=== PATIENT | female | born 1965 | race Caucasian/White ===

== ENCOUNTER 2022-03-24 13:40 | Outpatient (REF) | payer MEDICARE, MEDICAID, SELFPAY ==
--- NOTE | ~2022-03-24 | MM_ITS ---
EXAMINATION: BONE DENSITOMETRY CLINICAL INDICATION: Encounter for screening for osteoporosis. COMPARISON: Previous BD dated 03/21/2020 and baseline BD dated 07/26/2000. TECHNIQUE: Using a [employer] DXA System (software version: 13.1) manufactured by [employer], dual-energy x-ray absorptiometry was performed of the lumbar spine and left hip. The images are of good technical quality. Summary results are attached. FINDINGS: AP SPINE L1-L4: Current: BMD 0.829 g/cm2, Z-score -1.3, T-score -2.9, osteoporosis, 2.6% increase from previous, 3.4% increase from baseline (<5% change is not significant). Prior: BMD 0.808 g/cm2. Baseline: BMD 0.802 g/cm2. LEFT FEMUR, NECK: Current: BMD 0.782 g/cm2, Z-score -0.3, T-score -1.8, osteopenia. Prior: BMD 0.682 g/cm2. Baseline: BMD 0.817 g/cm2. LEFT FEMUR, TOTAL: Current: BMD 0.767 g/cm2, Z-score -0.6, T-score -1.9, osteopenia, 5.4% increase from previous, 4.8% decrease from baseline (<5% change is not significant). Prior: BMD 0.728 g/cm2. Baseline: BMD 0.806 g/cm2. IDENTIFIED RISK FACTORS: Osteoporosis, low body weight. Early menopause, secondary osteoporosis, anticonvulsant, hysterectomy, bilateral oophorectomy. HISTORY OF FRACTURE: None listed. MEDICATIONS: Calcium supplements or multivitamin, vitamin D. Prolia. MM/XR DEXA axial skeleton IMPRESSION: 1. DIAGNOSIS: Osteoporosis based on the lowest T-score value of -2.9 in the lumbar spine applying World Health Organization criteria. 2. 10-YEAR FRACTURE RISK PREDICTION, FRAX: According to the guidelines, FRAX calculation should only be performed on patients in the osteopenia bone density category. Therefore, FRAX was not performed on this patient. 3. Treatment Recommendations: NOF guidelines recommend consideration for treatment in postmenopausal women and men age 50 and older presenting with the following: -A hip or vertebral (clinical or morphometric) fracture. -T-score less than or equal to -2.5 at the femoral neck or spine after appropriate evaluation to exclude secondary causes. -Low bone mass at the hip or spine and a 10-year fracture probability by FRAX of greater than or equal to 3% for hip fracture or greater than or equal to 20% for major osteoporotic fracture based on the [place] adapted WHO algorithm. 4. Other Recommendations: All treatment decisions require clinical judgment and consideration of individual patient factors, including patient preferences, comorbidities, previous drug use, risk factors not captured in the FRAX model (e.g. frailty, falls, vitamin D deficiency, increased bone turnover, interval significant decline in bone density) and possible under or overestimation of fracture risk by FRAX. Additional medical evaluation for secondary cause of low bone mineral density may be appropriate. FUTURE SCAN RECOMMENDATION: People with diagnosed cases of osteoporosis or at high risk for fracture should have regular bone mineral density tests. For patients eligible for Medicare, routine testing is allowed once every 2 years. The testing frequency can be increased to one year for patients who have rapidly progressing disease, those who are receiving or discontinuing medical therapy to restore bone mass, or have additional risk factors.
== END 2022-03-24 13:41 | disposition home or self-care (01) ==
LOC: HO.MAMMO 13:40
PROVIDERS: PCP Internal Medicine; Visit Provider Internal Medicine Endocrinology, Diabetes & Metabolism
DX: Z13.820 Encounter for screening for osteoporosis (principal); M81.6 Localized osteoporosis [Lequesne]; Z78.0 Asymptomatic menopausal state
CPT/HCPCS: 77080

== ENCOUNTER 2024-11-15 10:06 | Outpatient (REF) | payer MEDICARE, MEDICAID, SELFPAY ==
--- NOTE | ~2024-11-15 | MM_ITS ---
EXAMINATION: DXA BONE DENSITY AXIAL HISTORY: Estrogen deficiency TECHNIQUE: [employer] Dual energy absorptiometry (DEXA) of the lumbar spine, total left hip, and femoral neck was performed. COMPARISON: Comparison is made with the prior examination dated 03/24/2022. FINDINGS: The bone mineral density of the lumbar spine is 0.812 with a T-score of -3.2, and a Z-score of -1.4. This is indicative of osteoporosis. This represents a BMD change of -1.9% compared to the prior exam. This is not statistically significant. The bone mineral density of the left total hip is 0.787 with a T-score of -1.8, and a Z-score of -0.3. This is indicative of osteopenia. This represents a BMD change of 2.6% compared to the prior exam. This is not statistically significant. The bone mineral density of the left femoral neck is 0.773 with a T-score of -1.9, and a Z-score of -0.2. This is indicative of osteopenia. This represents a BMD change of -1.2% compared to the prior exam. MM/XR DEXA axial skeleton IMPRESSION: Based on bone mineral density, and according to World Health Organization (WHO) criteria, the diagnosis is consistent with osteoporosis. All bone density values are in grams per centimeter squared (g/cm2). Statistically, 68% of repeat scans fall within 1 SD (+/- 0.010 g/cm2 for AP spine L1-L4) and 1 SD (+/- 0.012 g/cm2 for femur total) FRAX is a trademark of the [employer]'s [place] for Metabolic Bone Disease, a World Health Organization (WHO) Collaborating Center. Electronically signed by: Avelino Crouch MD 11/15/2024 01:07 PM EDT
--- OUTSIDE RECORDS SUMMARY | 2024-11-15 10:53 | XMS_ITS | Encounter Summary ---
Author Organization [facility] Address [address] [place] [address] Care Team Providers Care Optic Fibre Drawer Name Role Phone Ave Mckay MD Primary Care Pro vider Reason for Visit * Reason Comments Patient Questions Encounter Details Date Type Department Care Team ([facility] Contact Info) Description 01/11/2019 Telephone [facility] [address] [phone] Som Hunt MD [address] [address] Patient Questions Social History Tobacco Use Types Packs/Day Years Used Date Smoking Tobacco: Never Smokeless Tobacco: Never Comments No Sex and Gender Information Value Date Recorded Sex Assigned at Not on file Legal Sex Female 7:38 AM EST Gender Identity Not on file Sexual Orientation Not on file documented as of this encounter Miscellaneous Notes * Telephone Encounter - Becky Finney LVN LPN - 01/12/2019 5:23 PM EDT Pt needs prescription for bra and the prothesis. Pt would like to go back to work on 02/05/19 with no heavy lifting for 2 wks. She would like to pick them up on Mon during her appt. * Telephone Encounter - Shayla Brown - 01/11/2019 3:30 PM EDT Spoke with [facility] pt of Dr. Hunt, she had surgery for BILATERAL REMOVE IMPLANTS / CAPSULOTOMY on 12/20/18. Pt had a question but i'm not sure what she was asking. She also wanted to know if a return towork letter could be ready when she comes in on 01/15/19. Please call [facility] at [phone] (mobile) documented in this encounter Plan of Treatment Not on file documented as of this encounter Visit Diagnoses Not on filedocumented in this encounter Care Teams Optic Fibre Drawer Relationship Specialty Start Date End Date Ave Mckay MD [facility] [address] [facility] [address] [place] [address] PCP - General Internal Medicine 10/19/18 documented as of this encounter
--- OUTSIDE RECORDS SUMMARY | 2024-11-15 10:53 | XMS_ITS | Clinical Summary ---
Author Organization [facility] Address [address] [place] [address] Care Team Providers Care Farmworker Fryer Farm Name Role Phone Ave Ramirez MD Primary Care Provider [phone] Social History Tobacco Use Types Packs/Day Years Used Date Smoking Tobacco: Never Assessed Comments Unknown Sex and Gender Information Value Date Recorded Sex Assigned at Not on file Legal Sex Female 8:51 AM EST Gender Identity Not on file Sexual Orientation Not on file Plan of Treatment Health Maintenance Due Date Last Done Comments Breast Cancer Screening 1964 DTaP,Tdap,and Td Vaccines (1 - Tdap) 1983 Cervical Cancer Screening: P ap Smear 1985 Pneumococcal Vaccine: 50+ Ye ars (1 of 1 - PCV) 2014 Zoster Vaccines (1 of 2) 2014 COVID-19 Vaccine ( - 2023-2 5 season) 2024 Influenza Vaccine (#1) 2024 RSV Immunization Adult Patie nts (1 - 1-dose 75+ series) 2039 HIB Vaccines Aged Out No longer eligi ble based on patient's age to complete this topic HPV Vaccines Aged Out No longer eligi ble based on patient's age to complete this topic Hepatitis A Vaccines Aged Out No long er eligible based on patient's age to complete this topic Hepatitis B Vaccines Aged Out No long er eligible based on patient's age to complete this topic IPV Vaccines Aged Out No longer eligi ble based on patient's age to complete this topic MMR Vaccines Aged Out No longer eligi ble based on patient's age to complete this topic Meningococcal ACWY Vaccine Aged Out N o longer eligible based on patient's age to complete this topic Meningococcal B Vacine Aged Out No lo nger eligible based on patient's age to complete this topic Pneumococcal Vaccine: Pediat rics (0 to 5 Years) and At-Risk Patients (6 to 64 Years) Aged Out No longer eligible b ased on patient's age to complete this topic RSV Immunization Patients Un britany 20 months Aged Out No longer eligible b ased on patient's age to complete this topic Varicella Vaccines Aged Out No longer eligible based on patient's age to complete this topic Advance Directives Documents on File Type Date Recorded Patient Steam Table Associate Expl anation Health Care Decision (hx) 12/11/2010 AD CEBALLOS DIRECTIVE Health Care Decision (hx) 12/11/2010 AD CEBALLOS DIRECTIVE Care Teams Farmworker [employer]er Farm Relationship Specialty Start Date End Date Ave Ramirez MD [address] [place] [address] PCP - General Internal Medicine 03/14/17
--- OUTSIDE RECORDS SUMMARY | 2024-11-15 10:53 | XMS_ITS | Encounter Summary ---
Author Organization [facility] Address [address] [place] [address] Care Team Providers Care Radiology Administrator Name Role Phone Ave Mckay MD Primary Care Pro vider Encounter Details Date Type Department Care Team (Late st Contact Info) Description 11/29/2018 Orders Only [facility] Pre-Admission Testing [address] [facility] [address] [place] [address] Rick Kidd MD [address] [place] [id number] Social History Tobacco Use Types Packs/Day Years Used Date Smoking Tobacco: Never Smokeless Tobacco: Never Comments No Sex and Gender Information Value Date Recorded Sex Assigned at Not on file Legal Sex Female 7:38 AM EST Gender Identity Not on file Sexual Orientation Not on file documented as of this encounter Plan of Treatment Not on file documented as of this encounter Procedures * Due to [place] [employer] law, this organization might not be sharing negative HIV tests. Procedure Name Priority Date/Time Associated Diagnosis Comments CBC INCLUDES DIFFERENTIAL AND PLATELET COUNT Routine 11/29/2018 8:54 AM EDT Mixed hyperlipidemia HEMOGLOBIN A1C Routine 11/29/2018 8:54 AM EDT Impaired fasting glucose BASIC METABOLIC PANEL WITH (GFR) Routine 11/29/2018 8:54 AM EDT Mixed hyperlipidemia documented in this encounter Results * Due to [place] [employer] law, this organization might not be sharing negative HIV tests. * (ABNORMAL) HEMOGLOBIN A1C (11/29/2018 8:54 AM EDT) Hemoglobin A1C 5.9(H) <5.7 % of total Hgb [facility] Comment: For someone without known diabetes, a hemoglobin A1c value between 5.7% and 6.4% is consistent with prediabetes and should be confirmed with a follow-up test. For someone with known diabetes, a value <7% indicates that their diabetes is well controlled. A1c targets should be individualized based on duration of diabetes, age, comorbid conditions, and other considerations. This assay result is consistent with an increased risk of diabetes. Currently, no consensus exists regarding use of hemoglobin A1c for diagnosis of diabetes for children. Estimated Average Glucose 133 mg/dL (calc) [facility] 11/29/2018 8:54 AM EDT 11/29/2018 1:23 PM EDT Narrative Resulting Agency Comment [id number] us Rick Kidd MD LABORATORY Final Result [facility] [address] [place] [address] * CBC INCLUDES DIFFERENTIAL AND PLATELET COUNT (11/29/2018 8:54 AM EDT) WBC 7.2 3.8 - 10.8 Thousand/u L [facility] RBC 4.69 3.80 - 5.10 Million/uL [facility] Hemoglobin 13.8 11.7 - 15.5 g/dL [facility] Hematocrit 42.7 35.0 - 45.0 % [facility] MCV 91.0 80.0 - 100.0 fL [facility] MCH 29.4 27.0 - 33.0 pg [facility] MCHC 32.3 32.0 - 36.0 g/dL [facility] RDW 12.4 11.0 - 15.0 % [facility] PLT 233 140 - 400 Thousand/u L [facility] MPV 11.6 7.5 - 12.5 fL [facility] Neutrophils # 4471 1500 - 7800 cells/uL [facility] Lymphocytes # 2254 850 - 3900 cells/uL [facility] Monocytes # 410 200 - 950 cells/uL [facility] Eosinophils # 43 15 - 500 cells/uL [facility] Basophils # 22 0 - 200 cells/uL [facility] Neutrophils % 62.1 % [facility] Lymphocytes % 31.3 % [facility] Monocytes % 5.7 % [facility] Eosinophils % 0.6 % [facility] Basophils % 0.3 % [facility] 11/29/2018 8:54 AM EDT 11/29/2018 1:23 PM EDT Narrative Resulting Agency Comment [id number] us Rick Kidd MD LAB SAME DAY RESULT Final Result [facility] [address] [place] [address] * (ABNORMAL) BASIC METABOLIC PANEL WITH (GFR) (11/29/2018 8:54 AM EDT) Glucose 101(H) 65 - 99 mg/dL [facility] Comment: ? Fasting reference interval For someone without known diabetes, a glucose value between 100 and 125 mg/dL is consistent with prediabetes and should be confirmed with a follow-up test. Urea Nitrogen Blood (BUN) 13 7 - 25 mg/dL [facility] Creatinine 0.69 0.50 - 1.05 mg/dL [facility] Comment: For patients >49 years of age, the reference limit for Creatinine is approximately 13% higher for people identified as -Surinamese. EGFR 99 > OR = 60 mL/min/1 .73m2 [facility] GFR () 114 > OR = 60 mL/min/1 .73m2 [facility] BUN/Creatinine Ratio NOT APPLICABLE 6 - 22 (calc) [facility] Sodium 140 135 - 146 mmol/L [facility] Potassium 4.3 3.5 - 5.3 mmol/L [facility] Chloride 105 98 - 110 mmol/L [facility] Carbon dioxide 29 20 - 32 mmol/L [facility] Calcium 9.1 8.6 - 10.4 mg/dL [facility] 11/29/2018 8:54 AM EDT 11/29/2018 1:23 PM EDT Narrative [facility] - 11/29/2018 4:21 PM EDT Please note that this estimated GFR does not include an adjustment for the patient's height or weight, and can therefore, be viewed as reliable only for patients with heights between 60 and 72 . More precise quantification using a 24-hour urine sample or height-based algorithm is recommended for patients outside of this range of height and for those individuals with more precise needs for GFR calculation. Resulting Agency Comment [id number] us Rick Kidd MD LABORATORY Final Result [facility] [address] [place] [address] documented in this encounter Visit Diagnoses Diagnosis Mixed hyperlipidemia Impaired fasting glucose documented in this encounter Care Teams Radiology Administrator Relationship Specialty Start Date End Date Ave Mckay MD [facility] [address] [facility] [address] [place] [id number] PCP - General Internal Medicine 10/19/18 documented as of this encounter
--- OUTSIDE RECORDS SUMMARY | 2024-11-15 10:53 | XMS_ITS | Clinical Summary ---
Author Organization [facility] Address [address] [place] [address] Care Team Providers Care Hospital Liaison Name Role Phone Ave Mckay MD Primary Care Pro vider Allergies Active Allergy Reactions Criticality Noted Date Comments Contrast Dye Chest pain 11/29/2018 Also Dye used for MRI Tape 01/15/2019 Adhesive tape- skin irritation Medications Pravastatin Sodium 80 MG Tab 1 TABLET AT BEDTIME Active cycloSPORINE (RESTASIS) 0.05 % Emulsion None Entered Active Loratadine (CLEAR-ATADINE) 10 MG Tab 1 TABLET DAILY Active Oxybutynin Chloride 10 MG TABLET SR 24 HR 1 TABLET DAILY Active Calcium Carbonate-Vit D-Min (CALCIUM 1200) 4884-3009 MG-UNIT Chew Tab 1 TABLET DAILY WITH FOOD Active Cholecalciferol (VITAMIN D) 1000 UNITS Tab 1 TABLET DAILY Active Albuterol Sulfate 108 (90 BASE) MCG/ACT AEROSOL POWDER, BREATH ACTIVATED None Entered Active Fluticasone Furoate (FLONASE SENSIMIST) 27.5 MCG/SPRAY Suspension None Entered Active HYDROcodone-Jose taminophen 5-325 MG Tab 1 or 2 TABLET EVERY 4 TO 6 HOURS NEEDED 28 Tab 12/20/2018 Active Active Problems Problem Noted Date Diagnosed Date Mixed hyperlipidemia 11/29/2018 Asthma ([facility]) 11/29/2018 Social History Tobacco Use Types Packs/Day Years Used Date Smoking Tobacco: Never Smokeless Tobacco: Never Intimate Partner Violence Answer Date R ecorded Fear of Current or Ex-Partner Not on file Emotionally Abused Not on file 04/07/2023 Physically Abused Not on file 04/07/2023 Sexually Abused Not on file 04/07/2023 Feel Safe at Home Not on file 04/07/2023 Comments No Sex and Gender Information Value Date Recorded Sex Assigned at Not on file Legal Sex Female 7:38 AM EST Gender Identity Not on file Sexual Orientation Not on file Last Filed Vital Signs Vital Sign Reading Time Taken Comments Blood Pressure 122/70 11/29/2018 8:24 AM EDT Pulse 72 11/29/2018 8:24 AM EDT Temperature 37 ??C (98.6 ??F) 11/29/2018 8:24 AM EDT Respiratory Rate 14 11/29/2018 8:24 AM EDT Oxygen Saturation - - Inhaled Oxygen Concentration - - Weight 46.3 kg (102 lb) 11/29/2018 8:24 AM EDT Height 160 cm (5' 3 ) 11/29/2018 8:24 AM EDT Body Mass Index 18.07 11/29/2018 8:24 AM EDT Plan of Treatment Health Maintenance Due Date Last Done Comments Hepatitis C Screening 1964 Pap Smear 1980 DTaP/Tdap/Td (1 - Tdap) 1982 Mammogram/Breast Imaging 2004 Pneumococcal 50+ years (1 of 1 - PCV) 2014 Zoster (Shingrix) (1 of 2) 2014 COVID-19 Vaccine ( - 2023-2 5 season) 2024 Influenza (#1) 2024 RSV (1 - 1-dose 75+ series) 2039 HPV Vaccine Aged Out No longer eligi ble based on patient's age to complete this topic Hep A Aged Out No longer eligi ble based on patient's age to complete this topic Hep B Aged Out No longer eligi ble based on patient's age to complete this topic Hib Aged Out No longer eligi ble based on patient's age to complete this topic Meningococcal ACWY Aged Out No longer eligible based on patient's age to complete this topic Zoster (Zostavax) Discontinued Insurance MEDICARE PART B MEDICAID Care Teams Hospital Liaison Relationship Specialty Start Date End Date Ave Mckay MD [facility] [address] [address] PCP - General Internal Medicine 10/19/18
== END 2024-11-15 10:07 | disposition home or self-care (01) ==
LOC: HO.MAMMO 10:06
PROVIDERS: Visit Provider Internal Medicine Endocrinology, Diabetes & Metabolism
DX: Z13.820 Encounter for screening for osteoporosis (principal); M81.6 Localized osteoporosis [Lequesne]
CPT/HCPCS: 77080

== ENCOUNTER → 2024-11-15 11:30 | Outpatient (BNV) | payer MEDICARE, MEDICAID, SELFPAY | PROVIDERS: Visit Provider Radiology Diagnostic Radiology | DX: E28.39 Other primary ovarian failure (principal) | CPT/HCPCS: 77080 ==